=== PATIENT | female | born 1940 ===

== ENCOUNTER 2018-01-31 05:15 | Day surgery (SDC) | payer OTHER ==
[~2018-01-31 05:15] MED LIST: AMILODIPINE PO; GABAPENTIN300 MG PO; GLIPIZIDE ER5 MG PO; IBRERSARTAN PO; METROPOLOL PO; ZOCOR20 MG PO
[2018-01-31] MEDS ORDERED: MACROBID 100 M100 MG PO (08:49)
[2018-01-31] MEDS ORDERED: TYLENOL-CODEINE1 TA1 PO (08:50)
== END 2018-01-31 11:28 | disposition home or self-care (01) ==
LOC: CIR.AMB 05:15
DX: N81.3 Complete uterovaginal prolapse (principal)